=== PATIENT | female | born 1985 | race African-American/Black ===

== ENCOUNTER → 2016-11-25 | Outpatient (CLI) | payer OTHER ==
--- NOTE | 2016-11-28 14:27 | RAD ---
DATE: 11/25/2016 EXAM: DIGITAL DIAGNOSTIC RT, BREAST RIGHT HISTORY: Right breast tenderness, clear discharge from the nipple COMPARISON: None available This study was interpreted with the benefit of Computerized Aided Detection (CAD ). FINDINGS: Breast Density: HETERO The breast parenchyma Is heterogeneiously dense, which could reduce sensitivity of mammography. Breast parenchyma level C. There are no dominant suspicious masses, suspicious microcalcifications or evidence of architectural distortion. On the targeted ultrasound of the right breast there is a 6 mm cystic structure identified at 4:00 position 1.5 cm in the nipple likely a cyst. There are few dilated ducts identified in the retroareolar region from 5 to 7:00 position. No obvious echogenicity identified within the dilated Impression: 1. 6 mm cyst identified at 4:00 position. 2. Few dilated ducts identified in the right retroareolar region from 5 to 7:00 position. Probably benign findings. BI-RADS CATEGORY: 3 PROBABLE BENIGN-SHORT TERM F/U RECOMMENDED FOLLOW-UP: 6 months PQRS compliance statement: Patient information was entered into a reminder system with a target due date 05/25/2017 for the next mammogram. Mammography is a sensitive method for finding small breast cancers, but it does not detect them all and is not a substitute for careful clinical examination. A negative mammogram does not negate a clinically suspicious finding and should not result in delay in biopsying a clinically suspicious abnormality. "Our facility is accredited by the [employer] Mammography Program." ANILD
== END | disposition home or self-care (01) ==
LOC: MAMMO 12:50
PROVIDERS: ATTEND Nurse Practitioner Family
DX: N64.4 Mastodynia (principal)
CPT/HCPCS: 76641; G0206; 77065